=== PATIENT | female | born 1955 | race Caucasian/White ===

== ENCOUNTER → 2018-04-06 | Outpatient (CLI) | payer MEDICARE, MEDICAID ==
[~2018-04-06] MED LIST: ALBU0.632 IH; ALBU8.5H2 IH; ALPR0.2550 PO; FLUT1DIS26 IH; LEVO125T6 PO; LISI10TA PO; MELO-195 PO; MMT17NA NS; MNTL10T PO; SUMA50TA2 PO
--- NOTE | 2018-04-06 11:41 | Diagnostic Imaging Report ---
PROCEDURE: US Thyroid. TECHNIQUE: Multiple real-time grayscale images were obtained of the thyroid in various projections. INDICATION: Right lobectomy three years ago. FINDINGS: The previous thyroid ultrasound exam performed on 03/10/2012 noted marked enlargement of the right lobe of the thyroid. By history, the patient has had a right lobectomy in 2010 and consequently the possibility of recurrent neoplasm involving the right lobe of the thyroid was raised. In the interval since the prior exam, the patient has undergone a right lobectomy. There is no sign of a recurrent thyroid mass on the right. The left lobe of the thyroid is not enlarged measuring 3.9 x 2.7 x 2.1 cm (normal gland size 4-5 x 2 x 2 cm or less). On the prior ultrasound exam, the left lobe measured 3.1 x 1.9 x 1.7 cm. The left lobe does have a heterogeneous appearance. This is similar to the previous study. There is no focal mass involving the left lobe. The isthmus is unremarkable. IMPRESSION: 1. There are postsurgical changes consistent with an interval right lobectomy. There is no sign of recurrent neoplasm on the right. 2. The left lobe is not enlarged and has a heterogeneous appearance but appears stable when compared to the prior study. Dictated by: Dictated on workstation # [id number]
== END ==
LOC: RAD 10:10
PROVIDERS: ATTEND Internal Medicine Endocrinology, Diabetes & Metabolism
DX: E04.1 Nontoxic single thyroid nodule (principal); E89.0 Postprocedural hypothyroidism
CPT/HCPCS: 36415; 76536; 84443